=== PATIENT | female | born 1965 | race African-American/Black ===

== ENCOUNTER 2022-02-15 13:34 | Emergency (ER) | payer OTHER | END 2022-02-15 14:20 | disposition home or self-care (01) | LOC: NAV ERS 13:34 | DX: S90.415A Abrasion, left lesser toe(s), initial encounter (principal); S90.811A Abrasion, right foot, initial encounter; V89.2XXA Person injured in unspecified motor-vehicle accident, traffic, initial encounter | CPT/HCPCS: 99284 ==